=== PATIENT | female | born 1960 | race Caucasian/White ===

== ENCOUNTER 2018-07-19 09:20 | Emergency (ER) | payer BC, MEDICAID ==
--- NOTE | 2018-07-19 09:32 | ED Physician Chart ---
ED Chief Complaint/HPI - Patient Information Date Seen:: 07/19/18 Time Seen:: 09:40 Chief Complaint:: Chest Pain History of Present Illness:: onset x one day of intermittent, burning type chest pain with cough; pt denies trauma, LOC, ALOC, AMS, H/As, S/T, neck pain, dyspnea, abd. pain, A/N/V/D/C, fever, chills, or urinary s/s Historian:: Patient Review:: Nurse's Note Reviewed ED Review of Systems - Review of Systems General/Constitutional: No fever, No chills, No weight loss, No weakness, No diaphoresis, No edema, No loss of appetite Skin: No skin lesions, No rash, No bruising Head: No headache, No light-headedness Eyes: No loss of vision, No pain, No diplopia ENT: No earache, No nasal drainage, No sore throat, No tinnitus Neck: No neck pain, No swelling, No thyromegaly, No stiffness, No mass noted Cardio Vascular: Chest pain, No palpitations, No PND, No orthopnea, No edema Pulmonary: No SOB, Cough, No sputum, No wheezing GI: No nausea, No vomiting, No diarrhea, No pain, No melena, No hematochezia, No constipation, No hematemesis G/U: No dysuria, No frequency, No hematuria, No nacturia Freight Checker: No vaginal discharge, No abnormal vaginal bleed, No contraction Musculoskeletal: No bone or joint pain, No back pain, No muscle pain Endocrine: No polyuria, No polydipsia Psychiatric: No prior psych history, No depression, No anxiety, No suicidal ideation, No homicidal ideation, No auditory hallucination, No visual hallucination Hematopoietic: No bruising, No lymphadenopathy Allergic/Immuno: No urticaria, No angioedema Neurological: No syncope, No focal symptoms, No weakness, No paresthesia, No headache, No seizure, No dizziness, No confusion, No vertigo ED Past Medical History - Past Medical History Obtainable: Yes Past Medical History: Dyslipidemia Family History: HTN Social History: Non Smoker, No Alcohol, No Drug Use, Surgical History: None Psychiatricy History: None Medication: Reviewed Family Medical History - Family Member Mother History Unknown: Yes ED Physical Exam - Physical Examination General/Constitutional: Awake, Well-developed, well-nourished, Alert, No distress, GCS 15, Non-toxic appearing, Ambulatory Head: Atraumatic Eyes: Lids, conjuctiva normal, PERRL, EOMI Skin: Nl inspection, No rash, No skin lesions, No ecchymosis, Well hydrated, No lymphadenopathy ENMT: External ears, nose nl, TM canals nl, Nasal exam nl, Lips, teeth, gums nl , Oropharynx nl, Tonsils nl Neck: Nontender, Full ROM w/o pain, No JVD, No nuchal rigidity, No bruit, No mass, No stridor Respiratory: Nl effort/Exclusion, Clear to Auscultation, No Wheeze/Rhonchi/Rales Cardio Vascular: RRR, No murmur, gallop, rubs, NL S1 S2, Carotid/Femoral/Distal pulses equal bilaterally GI: No tenderness/rebounding/guarding, No organomegaly, No hernia, Normal BS's, Nondistended, No mass/bruits, No McBurney tenderness Other GI comments:: no pulsatile masses : No CVA tenderness Extremities: No tenderness or effusion, Full ROM, normal strength in all extremities, No edema, Normal digits & nails Neuro/Psych: Alert/oriented, DTR's symmetric, Normal sensory exam, Normal motor strength, Judgement/insight normal, Mood normal, Normal gait, No focal deficits Misc: Normal back, No paraspinal tenderness ED Labs/Radiology/EKG Results - Lab Results Comments:: Reviewed - Radiology Results Comments:: NAD - EKG Interpretations EKG Time:: 09:55 Rate & Rhythm: 78; NSR Comments:: LVH; non-specific st-t changes ED Septic Shock - . Is Septic Shock (SBP<90, OR Lactate>4 mmol\L) present?: No ED Reassessment (Disposition) - Reassessment Reassessment:: pt is asymptomatic upon transfer Reassessment Condition:: Improved - Diagnosis Diagnosis:: Chest Pain; Hyperlipidemia; Cough; Angina Pectoris; - Aftercare/Follow up Instructions Aftercare/Follow-Up Instructions:: Counseled pt regarding lab results/diagnosis & need follow up, Counseled pt & family regarding lab results/diagnosis & need follow up - Patient Disposition Discharge/Transfer:: Acute Care (other hosp) Accepting Physician:: Dr. Puneet Del Castillo Time Called:: 1100 Time Responded:: 11:00 Transport Method:: ACLS Admitted to:: Telemetry Spoke to:: Dr. Puneet Del Castillo Admitting Medical Physician:: Dr. Puneet Del Castillo Condition at Disposition:: Stable, Improved (pt tob be transferred via [facility] Ambulance as a direct admission to [facility] under Dr. Puneet Del Castillo)
[2018-07-19 09:53] LABS: % EOSINOPHILS 3.4 % (0.0-5.0); % LYMPHOCYTES 26.7 % (20.0-50.0); % MONOCYTES 6.7 % (2.0-10.0); % NEUTROPHILS 62.2 % (40.0-80.0); EOSINOPHILE ABSOLUTE 0.2 Th/cmm (0.1-0.4); HEMATOCRIT 40.9 % (41.0-60); HEMOGLOBIN 13.9 gm/dL (12-16); LYMPHOCYTE ABSOLUTE 1.3 Th/cmm (1.5-3.0); MEAN CELL VOLUME 85.9 fl (81-100); MEAN CORPUSCULAR HEMOGLOBIN 29.3 pg (27.0-31.0); MEAN PLATELET VOLUME 7.6 fl; MONOCYTE ABSOLUTE 0.3 Th/cmm (0.3-1.0); PLATELET COUNT 290 Th/cmm (150-400); RED BLOOD COUNT 4.76 Mil/cmm (3.80-5.10); RED CELL DISTRIBUTION WIDTH 12.8 % (11.5-20.0); WHITE BLOOD COUNT 4.8 Th/cmm (4.8-10.8)
[2018-07-19 10:01] LABS: INR 0.87 (0.5-1.4); PROTHROMBIN TIME (TEST) 9.1 SECONDS (9.5-11.5)
[2018-07-19 10:23] LABS: ALB/GLOB RATIO 1.5 (1.0-1.8); ALBUMIN 4.4 gm/dL (3.7-5.3); ALKALINE PHOSPHATASE 112 U/L (34-104); ANION GAP 12.3 (7.0-16.0); BILIRUBIN,TOTAL 0.2 mg/dL (0.3-1.0); BUN - UREA NITROGEN 13 mg/dL (7-25); CALCIUM SERUM 9.5 mg/dL (8.6-10.3); CARBON DIOXIDE 28.7 mEq/L (21.0-31.0); CHLORIDE 102 mEq/L (98-107); CHOLESTEROL 195 mg/dL (<200); CREATININE - SERUM 0.6 mg/dL (0.6-1.2); CREATININE KINASE 89 U/L (30-223); GFR AFRICAN-AMERICAN > 60.0 ml/min (>90); GFR NON AFRICAN-AMERICAN > 60.0 ml/min; GLUCOSE 117 mg/dL (70-105); HDL -HIGH DENSITY LIPOPROTEIN 42 mg/dL (23-92); SGOT 24 U/L (13-39); SGPT/ALT 24 U/L (7-52); SODIUM SERUM 139 mEq/L (136-145); TOTAL PROTEIN,SERUM 7.3 gm/dL (6.0-8.3); TRIGLYCERIDES 411 mg/dL (<150)
[2018-07-19] MEDS ORDERED: Aspirin 81mg Chewable Tab PO STA (10:29)
--- NOTE | 2018-07-19 10:42 | Diagnostic Imaging Report ---
CHEST X-RAY: AP view INDICATION: Chest pain COMPARISON: None FINDINGS: There is no focal consolidation or pleural effusions The heart is normal in size. The osseous structures demonstrate no acute abnormalities. IMPRESSION: No acute cardiopulmonary disease.
[2018-07-19] MEDS ORDERED: Aspirin 81mg Chewable Tab ONE (12:40)
== END 2018-07-19 14:25 | disposition short-term general hospital (02) ==
LOC: ER 09:20
DX: I20.9 Angina pectoris, unspecified (principal); E78.5 Hyperlipidemia, unspecified; R05 Cough
CPT/HCPCS: 36415-UA; 71045-TC; 80053-TC; 80061-TC; 82550-TC; 83880-TC; 84484-TC; 84703-TC; 85025-TC; 85610-TC; 93005; 94760; Z7610